=== PATIENT | male | born 1955 | race Caucasian/White ===

== ENCOUNTER → 2025-06-24 08:18 | Outpatient (BNVA) | payer MEDICARE, SELFPAY | PROVIDERS: Family Provider Nurse Practitioner Family; Visit Provider Dermatology | DX: L30.8 Other specified dermatitis (principal); L81.0 Postinflammatory hyperpigmentation; L82.1 Other seborrheic keratosis; D17.21 Benign lipomatous neoplasm of skin and subcutaneous tissue of right arm; L81.4 Other melanin hyperpigmentation; L91.8 Other hypertrophic disorders of the skin; T49.0X5A Adverse effect of local antifungal, anti-infective and anti-inflammatory drugs, initial encounter; X58.XXXA Exposure to other specified factors, initial encounter; L57.0 Actinic keratosis | CPT/HCPCS: 17000; 99203 ==